=== PATIENT | male | born 1945 | race Caucasian/White ===

== ENCOUNTER 2016-02-16 19:48 | Emergency (ER) | payer OTHER ==
[~2016-02-16] VITALS: Ht 170.2 cm; Wt 92.0 kg
[~2016-02-16 19:48] MED LIST: DARV PO; PRIL10CA PO; ROBA750T3 PO; SUCR1TAB6 PO
[2016-02-16 19:57] VITALS: BP 112/60; PULSE 80; RESP 16; TEMP 97.6; O2SAT 95
--- NOTE | 2016-02-16 22:01 | PD ---
HPI Chief Complaint: Head Injury Time Seen by Provider: 21:32 Travel History International Travel<30 days: No Contact w/Intl Traveler<30days: No Traveled to known affect area: No History of Present Illness HPI 70-year-old male presents to the emergency department by EMS transport for evaluation of head injury. Reportedly just prior to arrival to the emergency department patient had been pulled over by the [place] [employer] and while being evaluated was reportedly removed from his vehicle and while he was being put into the back of a police car hit the back of his head on the car door. Patient did not have loss of consciousness he was lowered to the ground without a fall or blunt trauma from the ground to his head. Patient here complains of posterior head pain and neck pain. Patient denies any new upper extremity or lower extremity numbness tingling or weakness besides his chronic right lower extremity foot drop. Patient admits to drinking alcohol. Patient denies any visual disturbance change in mentation trouble with his speech chest pain rib pain back pain abdominal pain pelvic pain or lower extremity pain or injury. Patient reports that his tetanus status is current. Patient rates his posterior head pain 7/10 in intensity. [facility] Past Medical History Narrative Medical Gouty arthritis alcohol use nursing notes reviewed Medical History: Unable to Obtain Hx Anticoagulant Therapy: No Cardiovascular Problems: Yes Diabetes: No Diminished Hearing: No Tetanus Vaccination: < 5 Years Past Surgical History Surgical History: Unable to Obtain Social History Alcohol Use: Yes (4-5 VODKA, WEEKENDS; "3 DRINKS THIS AFTERNOON" (02/16/16)) Tobacco Use: No Substance Use: No Allergies-Medications (Allergen,Severity, Reaction): Coded Allergies: No Known Allergies (Unverified , 02/16/16) Reported Meds & Prescriptions Reported Meds & Active Scripts Active Active Prescriptions or Reported Medications Unobtainable Review of Systems Except as stated in HPI: all other systems reviewed are Neg General / Constitutional: No: Fever, Chills Eyes: No: Diploplia, Visual changes HENT: Positive: Headaches, Neck Pain, No: Vertigo, Lightheadedness, Neck Stiffness Cardiovascular: No: Chest Pain or Discomfort, Palpitations Respiratory: No: Shortness of Breath Gastrointestinal: No: Nausea, Vomiting, Abdominal Pain Genitourinary: No: Flank Pain Musculoskeletal: Positive: Weakness (chronic right foot drop), No: Myalgias, Arthralgias, Limited ROM, Pain Skin: No Rash Neurologic: Positive: Focal Abnormalities (right foot drop), No: Weakness Psychiatric: No: Anxiety Hematologic/Lymphatic: No: Easy Bruising Physical Exam Narrative GENERAL: Well-developed well-nourished male in no acute distress no respiratory distress; GCS 15. SKIN: Warm and dry. HEAD: Atraumatic. Normocephalic. Soft tissue swelling to the superior posterior occiput with superficial abrasion no laceration no bony abnormality. EYES: Pupils equal and round. Extraocular muscles intact. No scleral icterus. No injection or drainage. ENT: No nasal bleeding or discharge. Mucous membranes pink and moist. No hemotympanum. NECK: Trachea midline. No JVD. No midline tenderness to direct palpation along the cervical spine. CARDIOVASCULAR: Regular rate and rhythm. RESPIRATORY: No accessory muscle use. Clear to auscultation. Breath sounds equal bilaterally. GASTROINTESTINAL: Abdomen soft, non-tender, nondistended. Hepatic and splenic margins not palpable. MUSCULOSKELETAL: Extremities without clubbing, cyanosis, or edema. No obvious deformities. Left knee mild erythema no edema no ballotable effusion with full range of motion distally extremity is neurovascular tendon intact; bilateral upper extremities full range of motion neurovascular tendon intact: Right lower extremity brace in place for right foot drop NEUROLOGICAL: Awake and alert. No obvious cranial nerve deficits. Motor grossly within normal limits. Five out of 5 muscle strength in the arms and legs. Normal speech. PSYCHIATRIC: Appropriate mood and affect; insight and judgment normal. Data Data Last Documented VS Vital Signs Date Time Temp Pulse Resp B/P Pulse Ox O2 Delivery O2 Flow Rate FiO2 02/16/16 20:04 95 02/16/16 19:57 97.6 80 16 112/[address] Brain W/O Iv Contrast(Rout) (02/16/16 ) Ct Cerv Spine W/O Contrast (02/16/16 ) Alcohol (Ethanol) (02/16/16 21:32) Apply Cervical Collar (02/16/16 21:32) Labs Laboratory Tests Test 02/16/16 21:29 Ethyl Alcohol Level 223 MG/DL MDM Medical Decision Making Medical Screen Exam Complete: Yes Emergency Medical Condition: Yes Medical Record Reviewed: Yes Interpretation(s) alcohol: 223, elevated Last Impressions Head CT 02/16/16 0000 Signed Impressions: Service Date/Time: Tuesday, February 16, 2016 22:31 - CONCLUSION: Normal examination for a patient of this age. Dino Brady MD Cervical Spine CT 02/16/16 0000 Signed Impressions: Service Date/Time: Tuesday, February 16, 2016 22:31 - CONCLUSION: 1. Moderate to severe degenerative disc disease. No acute findings. Dino Brady MD Differential Diagnosis Minor CHI, ICH, alcohol intoxication, cervical spine sprain strain fracture, knee contusion Narrative Course CT brain and cervical spine revealed no acute bony abnormalities cervical collar removed by ut serum alcohol level elevated to 223 At midnight patient is stable for outpatient management Diagnosis Primary Impression: Head injury, closed Qualified Code: S09.90XA - Head injury, closed, initial encounter Additional Impression: Alcohol use Referrals: Primary Care Physician call for appointment Patient Instructions: General Instructions Additional Instructions: Follow head injury precautions 24 hours Avoid alcohol consumption Follow-up with your primary care physician Return to the emergency department for any concerns or change in condition May use ice intermittently for the first 12-24 hours to soft tissue areas of swelling for comfort May use acetaminophen/Tylenol per package instructions as needed for minor pain Scripts Unable to Obtain Active Prescriptions or Reported Meds Disposition: 01 DISCHARGE HOME Condition: Stable Nora Zamudio MD Feb 16, 2016 22:01
--- NOTE | 2016-02-16 23:07 | RADHPO ---
EXAM DATE/TIME: 02/16/2016 22:31 [facility] COMPARISON: No previous studies available for comparison. INDICATIONS : Fall. Posterior head trauma. RADIATION DOSE: 64.47 CTDIvol (mGy) MEDICAL HISTORY : None SURGICAL HISTORY : None. ENCOUNTER: Initial ACUITY: 1 day PAIN SCALE: 5/10 LOCATION: occipital TECHNIQUE: Multiple contiguous axial images were obtained of the head. Using automated exposure control and adj ustment of the mA and/or kV according to patient size, radiation dose was kept as low as reasonably a chievable to obtain optimal diagnostic quality images. FINDINGS: CEREBRUM: The ventricles are normal for age. No evidence of midline shift, mass lesion, hemorrhage or acute in farction. No extra-axial fluid collections are seen. POSTERIOR FOSSA: The cerebellum and brainstem are intact. The 4th ventricle is midline. The cerebellopontine angle i s unremarkable. EXTRACRANIAL: The visualized portion of the orbits is intact. SKULL: The calvaria is intact. No evidence of skull fracture. CONCLUSION: Normal examination for a patient of this age. Dino Brady MD on February 16, 2016 at 23:04 Board Certified Radiologist. This report was verified electronically.
--- NOTE | 2016-02-16 23:11 | RADHPO ---
EXAM DATE/TIME: 02/16/2016 22:31 [facility] COMPARISON: No previous studies available for comparison. INDICATIONS : Fall. Posterior neck trauma. RADIATION DOSE: 26.68 CTDIvol (mGy) MEDICAL HISTORY : None SURGICAL HISTORY : None. ENCOUNTER: Initial ACUITY: 1 day PAIN SCALE: 7/10 LOCATION: neck TECHNIQUE: Volumetric scanning of the cervical spine was performed. Multiplanar reconstructions in the sagittal, coronal and oblique axial planes were performed. Using automated exposure control and adjustment o f the mA and/or kV according to patient size, radiation dose was kept as low as reasonably achievable to obtain optimal diagnostic quality images. FINDINGS: There is moderate to severe degenerative disc disease and facet arthropathy in the cervical spine. No prevertebral soft tissue swelling. No acute fracture. No significant subluxation. CONCLUSION: 1. Moderate to severe degenerative disc disease. No acute findings. Dino Brady MD on February 16, 2016 at 23:06 Board Certified Radiologist. This report was verified electronically.
[2016-02-17 00:32] VITALS: BP 115/68; PULSE 80; RESP 18; O2SAT 99
== END 2016-02-17 00:33 | disposition home or self-care (01) ==
LOC: PHEFT 19:48
DX: S09.90XA Unspecified injury of head, initial encounter (principal); W22.8XXA Striking against or struck by other objects, initial encounter; Y93.89 Activity, other specified; Y92.9 Unspecified place or not applicable
CPT/HCPCS: 70450; 72125; 80320